=== PATIENT | female | born 1980 | race Hispanic/Latino ===

== ENCOUNTER → 2024-05-24 10:36 | Outpatient (REF) | payer OTHER, SELFPAY | LOC: WDC 10:36 | PROVIDERS: ATTENDING PHYSICIAN Obstetrics & Gynecology; FAMILY PHYSICIAN Family Medicine | DX: Z12.31 Encounter for screening mammogram for malignant neoplasm of breast (principal) | CPT/HCPCS: 77063; 77067 ==

== ENCOUNTER → 2024-08-02 09:56 | Outpatient (REF) | payer OTHER, SELFPAY | LOC: WDC 09:56 | PROVIDERS: ATTENDING PHYSICIAN Obstetrics & Gynecology; FAMILY PHYSICIAN Family Medicine | DX: R92.2 Inconclusive mammogram (principal) | CPT/HCPCS: 76641 ==

== ENCOUNTER → 2025-05-30 10:48 | Outpatient (REF) | payer OTHER, SELFPAY | LOC: WDC 10:48 | PROVIDERS: ATTENDING PHYSICIAN Obstetrics & Gynecology | DX: Z12.31 Encounter for screening mammogram for malignant neoplasm of breast (principal) | CPT/HCPCS: 77063; 77067 ==

== ENCOUNTER 2025-08-06 10:39 | Emergency (ER) | payer OTHER, SELFPAY ==
[2025-08-06] VITALS (10 sets, daily range): BP systolic 121–202; BP diastolic 90–131; BMI 26.3
[2025-08-06 11:36] LABS: Hematocrit 41.4 % (37.0-47.0); Hemoglobin 14.1 g/dL (12.0-16.0); Mean Corp Hgb Conc. 34.1 g/dL (33.0-37.0); Mean Corpuscular Volume 97.9 fL (81.0-99.0); Nucleated Red Blood Cells % 0 %; Platelet Count 337 10^3/uL (130-400); Red Cell Dist. Width 11.1 % (11.5-14.5)
--- NOTE | 2025-08-06 11:36 | ED.GENMED ---
History of Present Illness
General
Chief Complaint: Blood Pressure Problem
Source: patient and spouse
Exam Limitations: none
Time Seen by Provider: 08/06/25 11:11
Nursing documentation reviewed up to this point in time: agreed with
History of Present Illness
History of Present Illness:
44-year-old female with no reported chronic medical issues presents to the emergency room for evaluation of hypertension. Patient reports that she had her routine physical exam with her primary doctor on Monday. She reports that at that time she
was told her blood pressure is elevated at 160/100. She was told that she should monitor her blood pressure for the next month and they will reassess need for medication. She says that she has been checking daily blood pressure since. She says
that ever since Monday blood pressures have been uptrending, today her blood pressure was severely elevated to almost 200 which caused her to call her primary doctor and she was ultimately referred to the ER for assessment. She says that she has
had chronic intermittent dizziness, intermittent paresthesias, slight blurry vision. Denies any chest pain. Denies shortness of breath. She denies focal weakness or numbness, headache. She says the symptoms have been intermittent since long
before her physical appointment that she says maybe since March and she thinks that her blood pressure may have been elevated for quite some time. does offer that they do tend to use a lot of salt in their foods. Patient denies any recent
stress or any other acute lifestyle changes.
Review of Systems
Review of Systems
All Other Systems: ROS reviewed and negative except as documented in HPI and ROS
Constitutional: Denies fever
EENT: Reports other (Blurry vision)
Respiratory: Denies trouble breathing
Cardiac: Denies chest pain
ABD/GI: Denies abdominal pain
Musculoskeletal: Denies neck pain or back pain
Neurological: Reports dizzy and other (Occasional paresthesias); Denies headache, weakness or numbness
Phy Exam
Physical Exam
Physical Exam:
General: Awake, alert, oriented x3; no acute distress
Head: Normocephalic, atraumatic
Eyes: Conjunctiva normal, EOMI, no clear optic disc or vascular abnormalities on funduscopic exam
Throat: Airway intact, handling secretions
Neck: Trachea midline, supple without meningismus
Lungs: Clear to auscultation bilaterally, no wheezing, rales, rhonchi
Heart: Regular rate and rhythm, no murmurs, gallops, or rubs
Abd: Soft, non distended, nontender, no palpable masses
Neuro: Cranial nerves intact, speech fluid, motor and sensory intact in all extremities
Skin: Warm and dry
Extremities: No edema in extremities, equal pulses in all extremities
Scores
Heart Failure Risk
Heart Failure Risk Score: Not Applicable
Heart Score for Chest Pain Patients
STEMI patient?: Not applicable
Withdrawal Assessment of Alcohol
Withdrawal Assessment Completed?: Not applicable
Course
Orders/Labs/Results
Orders:
Orders
08/06/25 10:44
ECG [Electrocardiogram (*1)] Urgent
Reason for Study: Vertigo / Dizzy
EKG- Treatment ONCE
08/06/25 11:11
Electrocardiogram (*1) Urgent
Reason for Study: Hypertension, Benign
08/06/25 11:12
Test Result ONCE
08/06/25 11:19
Complete Blood Count/With Diff Urgent
Comprehensive Metabolic Panel Urgent
Free T4 Urgent
HCG, Serum Qualitative Screen Urgent
TSH Reflex To Free T4 Urgent
Troponin I Urgent
08/06/25 11:35
Labetalol HCl [Trandate] 10 mg IV NOW STA
Abnormal Lab Results
08/06/25
11:19
MCH 33.3 H pg
(27.0-31.0)
RDW 11.1 L %
(11.5-14.5)
Sodium 133 L mmol/L
(135-145)
TSH (Reflex) 0.39 L uIU/ml
(0.47-4.68)
08/06/25 11:19
08/06/25 11:19
Vital Signs
Initial and Last Documented VS:
Initial Vital Signs
BP
185/126
08/06/25 10:39
Last Documented Vital Signs
Temp Pulse Resp BP Pulse Ox
36.9 C 72 19 153/103 99
08/06/25 10:40 08/06/25 12:30 08/06/25 12:30 08/06/25 12:30 08/06/25 12:30
MDM/Problems Addressed
Differential Diagnosis Includes:
Hypertension
MDM/Problems Addressed:
44-year-old female presents with hypertension�was elevated at her primary doctor's appointment on Monday and she has been checking it regularly since and notes that it has continued to be elevated today was severely elevated to almost 200. Blood
pressure here as high as 202/131. Rest of vitals normal, physical exam as above. She has had vague occasional symptoms such as paresthesias, blurry vision, dizziness, no acute change. No chest pain or breathing difficulties, no headache. Physical
exam is reassuring. Will plan to check screening EKG, screening labs. Check hCG. Will treat with labetalol for hypertension. Reassess after the above.
Labs reviewed: CBC and CMP no clinically significant abnormalities. Troponin undetectable. hCG negative. EKG shows sinus rhythm. Blood pressure greatly improved with medication here and now down to 153/103. At this point would hold on further
antihypertensives to avoid over correcting�at this point she is stable for discharge can follow-up with her primary physician as an outpatient. Will start her on oral lisinopril. I did discuss with her primary doctor and they will follow-up with
her in the office. Patient is comfortable with this plan. We also spoke about lifestyle adjustments including DASH diet and light exercise. All questions answered.
Acute Exacerbation and/or Progression of Chronic Illness:
Acutely hypertensive
Acute Exacerbation and/or Progression of Chronic Illness: HTN
*Pulse Oximetry
SaO2: 98
Oxygen Mode of Delivery: Room air
Patient hypoxic: no (98%)
*EKG
Interpreted by ED Provider?: Yes
Heart Rate: 80
Rate: normal
Rhythm: sinus
[place]: normal axis
Interval: normal interval
QRS Pattern: normal QRS
Ischemia: no ischemia
*Critical Care Note
Total Time (30-74mins, 75-104mins- exclusive of procedures): Not Applicable
Data Reviewed
Source: patient and spouse
Patient Management
Discussion with other providers: PCP (Discussed with PCP)
ED Attending Note
-
Portions of this chart may have been created with voice recognition software.� Occasional wrong word or��sound alike� substitutions may have occurred due to the inherent limitations of voice recognition software.
Discharge Plan
Departure
Patient Disposition: Home (Routine Discharge)
Date of Disposition: 08/06/25
Time of Disposition: 13:04
Patient with high blood pressure during this ER visit?: Yes
Discharge Problem:
Hypertension
Instructions: High Blood Pressure (DC), DASH diet
Prescriptions:
New
lisinopril 10 mg tablet
10 mg PO DAILY Qty: 30 0RF
No Action
vit-iron fum-folic ac 1 EACH tablet
1 tab PO DAILY
sennosides-docusate sodium 1 TABLET tablet
1 tab PO DAILYPRN PRN (Reason: constipation) Qty: 0 0RF
ibuprofen 600 MG tablet
400 mg PO Q4HPRN PRN (Reason: moderate pain/cramps) Qty: 0 0RF
hydrocortisone acetate [Cortifoam] 1 APPLIC foam
1 applic [place] DAILYPRN PRN (Reason: hemorrhoids) Qty: 0 0RF
Referrals:
Pawan Cabrera MD [Family Provider, Family Practice] - Follow up in 1 week
Activity Restrictions/Additional Instructions:
Thank you for visiting the Emergency Department at [facility].
1. Please schedule a follow up appointment as directed. Call first thing tomorrow morning to make an appointment.
2. If indicated, please take your medications as instructed and indicated on discharge paperwork.
3. If any of your symptoms do not improve, or persist, or become more severe within 6-12 hours, please return to the emergency department for further care.
4. Please return to the emergency department if you develop a headache, neck pain/stiffness, fever greater than 100.4F, chest pain, shortness of breath, persistent nausea, vomiting, slurred speech, difficulty walking, numbness/tingling, weakness,
signs of infection or any other symptoms that are worrisome to you.
Please call [phone] if you have any questions.
Interventions
Interventions:
*Risk Screen - Suicide Last Done: 08/06/25 10:40
*General Assessment Last Done: 08/06/25 10:40
*Neglect/Abuse Screening Last Done: 08/06/25 10:40
*ED- Fall Risk Assessment Last Done: 08/06/25 11:18
*ED COVID-19 Vaccine History Last Done: 08/06/25 11:18
*ED Influenza Vaccine History Last Done: 08/06/25 11:18
ED- Cardiac Assessment Last Done: 08/06/25 11:18
ED- Neurological Assessment Last Done: 08/06/25 11:18
ED- Pulmonary Assessment Last Done: 08/06/25 11:18
Discharge Date and Time
Print Language: YI
[2025-08-06] MEDS: TRANDATE 10 MG IV (11:47)
[2025-08-06 11:56] LABS: HCG, Serum Qualitative Screen Negative
[2025-08-06 11:58] LABS: ALT (SGPT) 15 U/L (0-35); AST (SGOT) 21 U/L (14-36); Albumin 4.6 g/dl (3.5-5.0); Alkaline Phosphatase 62 U/L (38-126); Blood Urea Nitrogen 13 mg/dl (7-17); Calcium 9.1 mg/dl (8.4-10.2); Carbon Dioxide 26 mmol/L (22-30); Chloride 102 mmol/L (98-107); Estimated Creatinine Clearance 106 ml/min; Glucose 92 mg/dl (70-99); Potassium 4.5 mmol/L (3.5-5.1); Sodium 133 mmol/L (135-145); Total Protein 8.1 g/dl (6.3-8.2); eGFR > 60.00
[2025-08-06 12:02] LABS: Troponin I < 0.012 ng/ml
== END 2025-08-06 13:23 | disposition home or self-care (01) ==
LOC: EMR 10:39
PROVIDERS: EMERGENCY PHYSICIAN Emergency Medicine; FAMILY PHYSICIAN Family Medicine
DX: I10 Essential (primary) hypertension (principal)
CPT/HCPCS: 99284; 96374; 80053; 84439; 84443; 84484; 84703; 85025; 93005

== ENCOUNTER → 2025-08-15 12:52 | Outpatient (REF) | payer OTHER, SELFPAY | LOC: WDC 12:52 | PROVIDERS: ATTENDING PHYSICIAN Obstetrics & Gynecology; FAMILY PHYSICIAN Family Medicine | DX: R92.2 Inconclusive mammogram (principal) | CPT/HCPCS: 76641 ==